=== PATIENT | female | born 1970 | race Hispanic/Latino ===

== ENCOUNTER 2016-06-29 06:56 | Emergency (ER) | payer MEDICAID ==
[2016-06-29 07:38] VITALS: BP 146/91
[2016-06-29] MEDS ORDERED: DUONEB 0.5 MG-3 MG/3 ML SOLN IH ONE (08:40)
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
--- NOTE | 2016-06-29 08:52 | XRay Report ---
ROUTINE CHEST, TWO VIEWS: HISTORY: Wheezing. Compared to 03/02/15. The trachea, heart, mediastinal contour, lung pires and bony thorax are unremarkable. IMPRESSION: No acute process identified.
== END 2016-06-29 09:37 | disposition home or self-care (01) ==
LOC: ED 06:56
DX: J06.9 Acute upper respiratory infection, unspecified (principal); J03.90 Acute tonsillitis, unspecified; E11.9 Type 2 diabetes mellitus without complications; Z86.718 Personal history of other venous thrombosis and embolism; Z86.711 Personal history of pulmonary embolism; Z90.49 Acquired absence of other specified parts of digestive tract; Z88.8 Allergy status to other drugs, medicaments and biological substances
CPT/HCPCS: 71020; 94640; 96372; 99283; J2920

== ENCOUNTER 2018-06-24 00:55 | Emergency (ER) | payer MEDICAID ==
[2018-06-24 01:48] LABS: Alanine Aminotransferase 7 units/L (7-56); Albumin 3.1 g/dL (3.9-5); BUN/Creatinine Ratio 21; Blood Urea Nitrogen 17 mg/dL (7-17); Calcium 9.1 mg/dL (8.4-10.2); Hemolysis Index 8
[2018-06-24 01:53] LABS: Basophils % (Auto) 0.4 % (0.0-1.8); Eosinophils # (Auto) 0.1 K/mm3 (0.0-0.4); Eosinophils % (Auto) 1.8 % (0.0-4.3); Hematocrit 32.6 % (30.3-42.9); Hemoglobin 10.4 gm/dl (10.1-14.3); Lymphocytes # (Auto) 1.8 K/mm3 (1.2-5.4); Lymphocytes % (Auto) 21.4 % (13.4-35.0); Mean Corpuscular HGB Conc 32 % (30-34); Mean Corpuscular Volume 79 fl (79-97); Monocytes # (Auto) 0.5 K/mm3 (0.0-0.8); Monocytes % (Auto) 6.3 % (0.0-7.3); Platelet Count 224 K/mm3 (140-440); Red Blood Count 4.11 M/mm3 (3.65-5.03); Red Cell Distribution Width 16.8 % (13.2-15.2)
--- NOTE | 2018-06-24 02:55 | Emergency Department Report ---
ED General Adult HPI - General Chief complaint: Abdominal Pain Stated complaint: L FLANK PAIN/R CALF PAIN Time Seen by Provider: 06/24/18 02:41 Source: patient Mode of arrival: Ambulatory Limitations: No Limitations - Related Data Previous Rx's Medication Instructions Recorded Last Taken Type Dabigatran [Pradaxa] 150 mg PO DAILY #60 capsule 03/02/15 07/08/15 Rx am metFORMIN [Glucophage] 850 mg PO BID #60 tablet 03/02/15 07/08/15 Rx am oxyCODONE [roxiCODONE] 5 mg PO Q6HR PRN #15 tablet 07/09/15 Unknown Rx ALBUTEROL Inhaler (OR & NICU) 2 puff IH QID PRN #1 inhalation 06/29/16 Unknown Rx [ProAir HFA Inhaler] Amoxicillin 500 mg PO BID #20 capsule 06/29/16 Unknown Rx predniSONE [Deltasone] 40 mg PO QDAY 5 Days tab 06/29/16 Unknown Rx Allergies Allergy/AdvReac Type Severity Reaction Status Date / Time levofloxacin [From Levaquin] Allergy Hives Verified 06/29/16 07:28 vancomycin Allergy Hives Verified 06/29/16 07:28 ED Review of Systems ROS: Stated complaint: L FLANK PAIN/R CALF PAIN Other details as noted in HPI ED Past Medical Hx - Past Medical History Previous Medical History?: Yes Hx Congestive Heart Failure: No Hx Diabetes: Yes Hx Deep Vein Thrombosis: Yes Hx Pulmonary Embolism: Yes Hx Asthma: No Hx COPD: No Additional medical history: DVT, FACTOR FIVE - Surgical History Past Surgical History?: Yes Hx Cholecystectomy: Yes (GALL BLADDER SURGERY) Additional Surgical History: Left ankle/leg surgery status post fracture, green filter - Social History Smoking Status: Never Smoker Substance Use Type: None - Medications Home Medications: Home Medications Medication Instructions Recorded Confirmed Last Taken Type Dabigatran [Pradaxa] 150 mg PO DAILY #60 capsule 03/02/15 07/08/15 07/08/15 Rx am metFORMIN [Glucophage] 850 mg PO BID #60 tablet 03/02/15 07/08/15 07/08/15 Rx am oxyCODONE [roxiCODONE] 5 mg PO Q6HR PRN #15 tablet 07/09/15 Unknown Rx ALBUTEROL Inhaler (OR & NICU) 2 puff IH QID PRN #1 inhalation 06/29/16 Unknown Rx [ProAir HFA Inhaler] Amoxicillin 500 mg PO BID #20 capsule 06/29/16 Unknown Rx predniSONE [Deltasone] 40 mg PO QDAY 5 Days tab 06/29/16 Unknown Rx ED Physical Exam - General Limitations: No Limitations ED Course Vital Signs 06/24/18 01:03 Temperature 98.1 F Pulse Rate 85 Respiratory 18 Rate Blood Pressure 204/98 O2 Sat by Pulse 97 Oximetry ED Medical Decision Making - Lab Data Result diagrams: 06/24/18 01:04 06/24/18 01:04 Critical care attestation.: If time is entered above; I have spent that time in minutes in the direct care of this critically ill patient, excluding procedure time. ED Disposition Condition: Stable Instructions: Abdominal Pain (ED)
--- NOTE | 2018-06-24 03:57 | Emergency Department Report ---
ED General Adult HPI - General Chief complaint: Abdominal Pain Stated complaint: L FLANK PAIN/R CALF PAIN Time Seen by Provider: 06/24/18 02:41 Source: patient Mode of arrival: Ambulatory Limitations: No Limitations - History of Present Illness Initial comments: Mrs. Turk is a 47 yo female with history of diabetes, severe obesity, factor V Leiden who presents with right calf pain for the past week. Her vascular surgeon Dr. Montoya attempted duplex study, due to severe pain in the study was unable to be completed. She has follow-up within the next 3 days on Sunday. 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 History of thrombophlebitis. History of the ED. She has been on chronic anticoagulation. Currently taking Eliquis 5 gg by mouth twice a day. She is unclear whether she has a new DVT or cellulitis causing the right calf pain. She also concern for UTI with the left flank pain left hip pain. PCP Dr. Rene. Vascular surgeon Dr. Montoya. Has IVC filter and IVC stents -: Gradual (5) Location: right, lower extremity Severity scale (0 -10): 7 Quality: aching Consistency: constant Worsens with: movement Associated Symptoms: denies: chest pain, cough, malaise - Related Data Previous Rx's Medication Instructions Recorded Last Taken Type Dabigatran [Pradaxa] 150 mg PO DAILY #60 capsule 03/02/15 07/08/15 Rx am metFORMIN [Glucophage] 850 mg PO BID #60 tablet 03/02/15 07/08/15 Rx am oxyCODONE [roxiCODONE] 5 mg PO Q6HR PRN #15 tablet 07/09/15 Unknown Rx ALBUTEROL Inhaler (OR & NICU) 2 puff IH QID PRN #1 inhalation 06/29/16 Unknown Rx [ProAir HFA Inhaler] Amoxicillin 500 mg PO BID #20 capsule 06/29/16 Unknown Rx predniSONE [Deltasone] 40 mg PO QDAY 5 Days tab 06/29/16 Unknown Rx Sulfamethoxazole/Trimethoprim 1 each PO BID 7 Days #14 tablet 06/24/18 Unknown Rx [Bactrim DS TAB] cephALEXin [Keflex] 500 mg PO Q6HR 7 Days #28 capsule 06/24/18 Unknown Rx oxyCODONE /ACETAMINOPHEN [Percocet 1 tab PO Q6HR PRN #10 tablet 06/24/18 Unknown Rx 5/325] Allergies Allergy/AdvReac Type Severity Reaction Status Date / Time levofloxacin [From Levaquin] Allergy Hives Verified 06/29/16 07:28 vancomycin Allergy Hives Verified 06/29/16 07:28 ED Review of Systems ROS: Stated complaint: L FLANK PAIN/R CALF PAIN Other details as noted in HPI Comment: All other systems reviewed and negative Constitutional: denies: fever, malaise Cardiovascular: denies: chest pain ED Past Medical Hx - Past Medical History Previous Medical History?: Yes Hx Congestive Heart Failure: No Hx Diabetes: Yes Hx Deep Vein Thrombosis: Yes Hx Pulmonary Embolism: Yes Hx Asthma: No Hx COPD: No Additional medical history: DVT, FACTOR FIVE - Surgical History Past Surgical History?: Yes Hx Cholecystectomy: Yes (GALL BLADDER SURGERY) Additional Surgical History: Left ankle/leg surgery status post fracture, green filter - Social History Smoking Status: Never Smoker Substance Use Type: None - Medications Home Medications: Home Medications Medication Instructions Recorded Confirmed Last Taken Type Dabigatran [Pradaxa] 150 mg PO DAILY #60 capsule 03/02/15 07/08/15 07/08/15 Rx am metFORMIN [Glucophage] 850 mg PO BID #60 tablet 03/02/15 07/08/15 07/08/15 Rx am oxyCODONE [roxiCODONE] 5 mg PO Q6HR PRN #15 tablet 07/09/15 Unknown Rx ALBUTEROL Inhaler (OR & NICU) 2 puff IH QID PRN #1 inhalation 06/29/16 Unknown Rx [ProAir HFA Inhaler] Amoxicillin 500 mg PO BID #20 capsule 06/29/16 Unknown Rx predniSONE [Deltasone] 40 mg PO QDAY 5 Days tab 06/29/16 Unknown Rx Sulfamethoxazole/Trimethoprim 1 each PO BID 7 Days #14 tablet 06/24/18 Unknown Rx [Bactrim DS TAB] cephALEXin [Keflex] 500 mg PO Q6HR 7 Days #28 capsule 06/24/18 Unknown Rx oxyCODONE /ACETAMINOPHEN [Percocet 1 tab PO Q6HR PRN #10 tablet 06/24/18 Unknown Rx 5/325] ED Physical Exam - General Limitations: No Limitations General appearance: alert, in no apparent distress - Head Head exam: Present: atraumatic, normocephalic - Eye Eye exam: Present: normal appearance - ENT ENT exam: Present: mucous membranes moist - Neck Neck exam: Present: normal inspection, full ROM - Respiratory Respiratory exam: Present: normal lung sounds bilaterally. Absent: respiratory distress, wheezes, rales, rhonchi - Cardiovascular Cardiovascular Exam: Present: regular rate, normal rhythm, normal heart sounds. Absent: systolic murmur, diastolic murmur, rubs, gallop - GI/Abdominal GI/Abdominal exam: Present: soft, normal bowel sounds. Absent: distended, tenderness, guarding, rebound - Extremities Exam Extremities exam: Present: other (bilateral lower extremities with small bandages dressing clean dry intact, mild erythema and edema involving calf region RLE) - Back Exam Back exam: Present: normal inspection - Neurological Exam Neurological exam: Present: alert, oriented X3 - Psychiatric Psychiatric exam: Present: normal affect, normal mood - Skin Skin exam: Present: warm, dry, intact, normal color. Absent: rash ED Course Vital Signs 06/24/18 06/24/18 01:03 03:39 Temperature 98.1 F 98.2 F Pulse Rate 85 76 Respiratory 18 19 Rate Blood Pressure 204/98 Blood Pressure 187/85 [Left] O2 Sat by Pulse 97 98 Oximetry ED Medical Decision Making - Lab Data Result diagrams: 06/24/18 01:04 06/24/18 01:04 Laboratory Results - last 24 hr 06/24/18 06/24/18 06/24/18 01:04 01:04 01:04 WBC 8.5 RBC 4.11 Hgb 10.4 Hct 32.6 MCV 79 MCH 25 L MCHC 32 RDW 16.8 H Plt Count 224 Lymph % (Auto) 21.4 Coles % (Auto) 6.3 Eos % (Auto) 1.8 Baso % (Auto) 0.4 Lymph # 1.8 Coles # 0.5 Eos # 0.1 Baso # 0.0 Seg Neutrophils % 70.1 H Seg Neutrophils # 6.0 D-Dimer 285.66 H Sodium 139 Potassium 4.1 Chloride 99.6 Carbon Dioxide 28 Anion Gap 16 BUN 17 Creatinine 0.8 Estimated GFR > 60 BUN/Creatinine Ratio 21 Glucose 194 H Calcium 9.1 Total Bilirubin 0.20 AST 11 ALT 7 Alkaline Phosphatase 102 Total Protein 7.4 Albumin 3.1 L Albumin/Globulin Ratio 0.7 HCG, Qual 05/20/19 01:04 WBC RBC Hgb Hct MCV MCH MCHC RDW Plt Count Lymph % (Auto) Coles % (Auto) Eos % (Auto) Baso % (Auto) Lymph # Coles # Eos # Baso # Seg Neutrophils % Seg Neutrophils # D-Dimer Sodium Potassium Chloride Carbon Dioxide Anion Gap BUN Creatinine Estimated GFR BUN/Creatinine Ratio Glucose Calcium Total Bilirubin AST ALT Alkaline Phosphatase Total Protein Albumin Albumin/Globulin Ratio HCG, Qual Negative - Medical Decision Making Mrs. Turk presents with right calf redness/tenderness differential diagnosis cellulitis versus DVT prescribed cephalexin bactrim and Percocet. She has follow-up with her vascular surgeon on Sunday. She has been compliant with anticoagulation Hypertensive urgency without end organ damage referred to PCP for BP check Vital Signs - 24 hr 06/24/18 06/24/18 01:03 03:39 Temperature 98.1 F 98.2 F Pulse Rate 85 76 Respiratory 18 19 Rate Blood Pressure 204/98 Blood Pressure 187/85 [Left] O2 Sat by Pulse 97 98 Oximetry Critical care attestation.: If time is entered above; I have spent that time in minutes in the direct care of this critically ill patient, excluding procedure time. ED Disposition Clinical Impression: Right leg pain, Factor V Leiden, History of DVT (deep vein thrombosis), Chronic wound of extremity, Hypertensive urgency Disposition: -01 TO HOME OR SELFCARE Is pt being admited?: No Does the pt Need Aspirin: No Condition: Stable Instructions: Chronic Wound Care (ED) Prescriptions: Sulfamethoxazole/Trimethoprim [Bactrim DS TAB] 1 each PO BID 7 Days #14 tablet cephALEXin [Keflex] 500 mg PO Q6HR 7 Days #28 capsule oxyCODONE /ACETAMINOPHEN [Percocet 5/325] 1 tab PO Q6HR PRN #10 tablet PRN Reason: Pain
[2018-06-24] MEDS ORDERED: BACTRIM DS PO ONE (03:58)
[2018-06-24] MEDS ORDERED: PERCOCET 5/325 PO ONE (03:58)
[2018-06-24] MEDS ORDERED: KEFLEX PO ONE (03:58)
[2018-06-24 04:25] VITALS: BP 186/81
== END 2018-06-24 04:26 | disposition home or self-care (01) ==
LOC: ED 00:55
DX: S81.801A Unspecified open wound, right lower leg, initial encounter (principal); D68.51 Activated protein C resistance; I16.0 Hypertensive urgency; E11.9 Type 2 diabetes mellitus without complications; Z86.718 Personal history of other venous thrombosis and embolism; Z90.49 Acquired absence of other specified parts of digestive tract; Z88.1 Allergy status to other antibiotic agents; X58.XXXA Exposure to other specified factors, initial encounter; Y93.89 Activity, other specified; Y92.89 Other specified places as the place of occurrence of the external cause; Y99.8 Other external cause status
CPT/HCPCS: 36415; 80053; 84703; 85025; 85379; 99283

== ENCOUNTER 2018-12-02 16:00 | Emergency (ER) | payer MEDICAID ==
--- NOTE | 2018-12-02 16:27 | Emergency Department Report ---
Blank Doc - Documentation Documentation: 48-year-old female that presents with bilateral leg open wounds with drainage. This initial assessment/diagnostic orders/clinical plan/treatment(s) is/are subject to change based on patient's health status, clinical progression and re- assessment by fellow clinical providers in the ED. Further treatment and workup at subsequent clinical providers discretion. Patient/guardians urged not to elope from the ED as their condition may be serious if not clinically assessed and managed. Initial orders include: 1- Patient sent to [facility] for further evaluation and treatment 2- labs
[2018-12-02 18:04] LABS: Basophils # (Auto) 0.1 K/mm3 (0.0-0.1); Basophils % (Auto) 0.8 % (0.0-1.8); Eosinophils # (Auto) 0.2 K/mm3 (0.0-0.4); Eosinophils % (Auto) 1.9 % (0.0-4.3); Hematocrit 37.2 % (30.3-42.9); Hemoglobin 11.8 gm/dl (10.1-14.3); Lymphocytes # (Auto) 1.4 K/mm3 (1.2-5.4); Lymphocytes % (Auto) 15.9 % (13.4-35.0); Mean Corpuscular HGB Conc 32 % (30-34); Mean Corpuscular Volume 83 fl (79-97); Monocytes # (Auto) 0.6 K/mm3 (0.0-0.8); Monocytes % (Auto) 7.1 % (0.0-7.3); Platelet Count 257 K/mm3 (140-440); Red Blood Count 4.51 M/mm3 (3.65-5.03); Red Cell Distribution Width 14.6 % (13.2-15.2)
[2018-12-02 18:13] LABS: BUN/Creatinine Ratio 26; Blood Urea Nitrogen 21 mg/dL (7-17); Calcium 8.8 mg/dL (8.4-10.2); Hemolysis Index 13
--- NOTE | 2018-12-02 19:42 | Emergency Department Report ---
HPI - General Chief Complaint: Laceration/Recheck/Suture Time Seen by Provider: 12/02/18 16:26 - HPI HPI: Room 18 The patient is a 48-year-old female presenting with a chief complaint of chronic leg wounds. Patient states she has a history of chronic wounds to bilateral lower extremities. The patient states the wound on her left lower extremity has been there for approximately 3-4 years. The wound on the right lower extremity has been there for approximately 2 years. Patient states she has not seen a physician about the legs for approximately 5 months. The patient states she's noticed that the wounds are getting bigger and over the past 4 days has been a yellowish discharge that is malodorous. Patient denies history of fever. Patient states she has not been on antibiotics for her leg since January 2018 Location: [See above] Duration: [See above] Quality: [See above] Severity: [See above] Timing: [See above] Context: [See above] Modifying factors: [See above] Associated signs and symptoms: [see above] ED Past Medical Hx - Past Medical History Hx Diabetes: Yes Hx Deep Vein Thrombosis: Yes Hx Pulmonary Embolism: Yes Additional medical history: DVT, FACTOR FIVE - Surgical History Hx Cholecystectomy: Yes (GALL BLADDER SURGERY) Additional Surgical History: Left ankle/leg surgery status post fracture, green filter - Family History Family history: no significant - Social History Smoking Status: Never Smoker Substance Use Type: None - Medications Home Medications: Home Medications Medication Instructions Recorded Confirmed Last Taken Type Dabigatran [Pradaxa] 150 mg PO DAILY #60 capsule 03/02/15 07/08/15 07/08/15 Rx am metFORMIN [Glucophage] 850 mg PO BID #60 tablet 03/02/15 07/08/15 07/08/15 Rx am oxyCODONE [roxiCODONE] 5 mg PO Q6HR PRN #15 tablet 07/09/15 Unknown Rx ALBUTEROL Inhaler (OR & NICU) 2 puff IH QID PRN #1 inhalation 06/29/16 Unknown Rx [ProAir HFA Inhaler] Amoxicillin 500 mg PO BID #20 capsule 06/29/16 Unknown Rx predniSONE [Deltasone] 40 mg PO QDAY 5 Days tab 06/29/16 Unknown Rx Sulfamethoxazole/Trimethoprim 1 each PO BID 7 Days #14 tablet 06/24/18 Unknown Rx [Bactrim DS TAB] cephALEXin [Keflex] 500 mg PO Q6HR 7 Days #28 capsule 06/24/18 Unknown Rx oxyCODONE /ACETAMINOPHEN [Percocet 1 tab PO Q6HR PRN #10 tablet 06/24/18 Unknown Rx 5/325] HYDROcodone/APAP 5-325 [[place] 1 - 2 each PO Q6HR PRN #14 tablet 12/02/18 Unknown Rx 5/325] Ibuprofen [Motrin 800 MG tab] 800 mg PO Q8HR PRN #20 tablet 12/02/18 Unknown Rx Sulfamethoxazole/Trimethoprim 1 each PO BID #20 tablet 12/02/18 Unknown Rx [Bactrim DS TAB] ED Review of Systems ROS: Stated complaint: LFT ANKLE WOUND/LFT CALF PAIN Other details as noted in HPI Constitutional: chills. denies: fever Eyes: denies: eye pain ENT: denies: throat pain Respiratory: no symptoms reported Cardiovascular: denies: chest pain Endocrine: no symptoms reported Gastrointestinal: denies: abdominal pain Genitourinary: denies: dysuria Skin: lesions, change in color Physical Exam - Physical Exam Vital Signs: Vital Signs 12/02/18 12/02/18 16:26 19:10 Temperature 98.0 F 98.3 F Pulse Rate 86 86 Respiratory 16 16 Rate Blood Pressure 217/115 Blood Pressure 221/115 [Left] O2 Sat by Pulse 98 97 Oximetry Physical Exam: GENERAL: The patient is well-developed well-nourished female lying on stretcher not appearing to be in acute distress. [] HEENT: Normocephalic. Atraumatic. Extraocular motions are intact. Patient has moist mucous membranes. NECK: Supple. Trachea midline CHEST/LUNGS: There is no respiratory distress noted. HEART/CARDIOVASCULAR: Regular. There is no tachycardia. SKIN: There is a large ulceration/to the back of the right calf with grayish yellow discharge present is slightly malodorous. There is a large ulceration to the back of the left lower extremity with a lesser amount of drainage NEURO: The patient is awake, alert, and oriented. The patient is cooperative. The patient has normal speech MUSCULOSKELETAL: There is no evidence of acute injury. ED Course Vital Signs 12/02/18 12/02/18 16:26 19:10 Temperature 98.0 F 98.3 F Pulse Rate 86 86 Respiratory 16 16 Rate Blood Pressure 217/115 Blood Pressure 221/115 [Left] O2 Sat by Pulse 98 97 Oximetry ED Medical Decision Making - Lab Data Result diagrams: 12/02/18 16:52 12/02/18 16:52 Laboratory Tests 12/02/18 12/02/18 12/02/18 16:52 16:52 16:52 WBC 8.6 RBC 4.51 Hgb 11.8 Hct 37.2 MCV 83 MCH 26 L MCHC 32 RDW 14.6 Plt Count 257 Lymph % (Auto) 15.9 [place] % (Auto) 7.1 Eos % (Auto) 1.9 Baso % (Auto) 0.8 Lymph # 1.4 [place] # 0.6 Eos # 0.2 Baso # 0.1 Seg Neutrophils % 74.3 H Seg Neutrophils # 6.4 Sodium 135 L Potassium 4.6 Chloride 101.2 Carbon Dioxide 21 L Anion Gap 17 BUN 21 H Creatinine 0.8 Estimated GFR > 60 BUN/Creatinine Ratio 26 Glucose 328 H Calcium 8.8 HCG, Qual Negative - Differential Diagnosis current leg wounds, infection Critical care attestation.: If time is entered above; I have spent that time in minutes in the direct care of this critically ill patient, excluding procedure time. ED Disposition Clinical Impression: Leg wound, right, Leg wound, left, Wound drainage Disposition: TO HOME OR SELFCARE Is pt being admited?: No Does the pt Need Aspirin: No Condition: Stable Instructions: Chronic Wound Care (ED) Additional Instructions: Return to the emergency department should you develop worsening symptoms, inability to tolerate food or liquids, high fever or any other concerns Prescriptions: Sulfamethoxazole/Trimethoprim [Bactrim DS TAB] 1 each PO BID #20 tablet Ibuprofen [Motrin 800 MG tab] 800 mg PO Q8HR PRN #20 tablet PRN Reason: Pain, Moderate (4-6) HYDROcodone/APAP 5-325 [[place] 5/325] 1 - 2 each PO Q6HR PRN #14 tablet PRN Reason: Pain [facility]errals[facility]] - 3-5 Days Time of Disposition: 19:46
[2018-12-02] MEDS ORDERED: HYDROcodone/ACETAMINOPHEN 5-325 MG TAB PO ONE (20:21)
[2018-12-02 22:06] VITALS: BP 148/82
== END 2018-12-02 20:50 | disposition home or self-care (01) ==
LOC: ED 16:00
DX: S81.801A Unspecified open wound, right lower leg, initial encounter (principal); S81.802A Unspecified open wound, left lower leg, initial encounter; Z88.1 Allergy status to other antibiotic agents; E11.9 Type 2 diabetes mellitus without complications; Z86.718 Personal history of other venous thrombosis and embolism; Z86.711 Personal history of pulmonary embolism; Z79.84 Long term (current) use of oral hypoglycemic drugs; Z79.899 Other long term (current) drug therapy; X58.XXXA Exposure to other specified factors, initial encounter; Y93.89 Activity, other specified; Y92.89 Other specified places as the place of occurrence of the external cause; Y99.8 Other external cause status
CPT/HCPCS: 36415; 80048; 84703; 85025; 87116; 99283

== ENCOUNTER 2019-05-22 23:09 | Emergency (ER) | payer SELFPAY ==
[2019-05-22 23:30] VITALS: BP 212/109
[2019-05-23] MEDS ORDERED: SULFAMETHOXAZOLE/TRIMETHOPRIM 800/160MG DS TAB PO ONE (00:03)
[2019-05-23] MEDS ORDERED: ACETAMINOPHEN W/CODEINE 300-30 MG TAB PO ONE (00:03)
--- NOTE | 2019-05-23 00:09 | Emergency Department Report ---
ED General Adult HPI - General Chief complaint: Extremity Injury, Lower Stated complaint: BILATERAL LEG PAIN AND DISCHARGE Time Seen by Provider: 05/22/19 23:56 Source: patient Mode of arrival: Ambulatory Limitations: No Limitations - History of Present Illness Initial comments: MS. Turk is s 48 y/o w/f with hx of obesity, DMII, and cnronic leg wounds bilat. patient presents tonight as she is out of Bactrim and requesting referral to a different primary care doctor. She denies fevers or chills there is no nausea vomiting there are no new wounds. Patient is well versed on wound care including wet-to-dry dressings which she does herself at home. She has secondary request for refill for metformin and Lantus pen will provide referral to primary care refill Bactrim patient will follow-up with primary care tomorrow. Noted elevated blood pressure tonight repeat BP is 154/87 heart rate 74 there is no fever. Patient denies headache, dizziness, lightheadedness, chest pain, shortness of breath, diaphoresis or back pain. Onset/Timin -: year(s) Location: lower extremity (bilat ) Radiation: non-radiation Severity scale (0 -10): 3 Quality: aching Consistency: intermittent Improves with: none Worsens with: none Associated Symptoms: denies: chest pain, fever/chills, malaise, nausea/vomiting, shortness of breath - Related Data Previous Rx's Medication Instructions Recorded Last Taken Type Dabigatran [Pradaxa] 150 mg PO DAILY #60 capsule 03/02/15 07/08/15 Rx am oxyCODONE [roxiCODONE] 5 mg PO Q6HR PRN #15 tablet 07/09/15 Unknown Rx Albuterol INH(or & Nicu Only) 2 puff IH QID PRN #1 inhalation 06/29/16 Unknown Rx [ProAir HFA Inhaler] Amoxicillin 500 mg PO BID #20 capsule 06/29/16 Unknown Rx predniSONE [Deltasone] 40 mg PO QDAY 5 Days tab 06/29/16 Unknown Rx Sulfamethoxazole/Trimethoprim 1 each PO BID 7 Days #14 tablet 06/24/18 Unknown Rx [Bactrim DS TAB] cephALEXin [Keflex] 500 mg PO Q6HR 7 Days #28 capsule 06/24/18 Unknown Rx oxyCODONE /ACETAMINOPHEN [Percocet 1 tab PO Q6HR PRN #10 tablet 06/24/18 Unknown Rx 5/325] HYDROcodone/APAP 5-325 [[place] 1 - 2 each PO Q6HR PRN #14 tablet 12/02/18 Unknown Rx 5/325] Ibuprofen [Motrin 800 MG tab] 800 mg PO Q8HR PRN #20 tablet 12/02/18 Unknown Rx Acetaminophen [Acetaminophen TAB] 1,000 mg PO Q6HR PRN #30 tablet 05/23/19 Unknown Rx Insulin Glargine,Hum.rec.anlog 10 unit SQ DAILY #1 insuln.pen 05/23/19 Unknown Rx [Lantus Solostar] Sulfamethoxazole/Trimethoprim 1 each PO BID 14 Days #28 tablet 05/23/19 Unknown Rx [Bactrim DS TAB] metFORMIN [Glucophage] 850 mg PO BID #60 tablet 05/23/19 Unknown Rx Allergies Allergy/AdvReac Type Severity Reaction Status Date / Time levofloxacin [From Levaquin] Allergy Hives Verified 06/29/16 07:28 vancomycin Allergy Hives Verified 06/29/16 07:28 ED Review of Systems ROS: Stated complaint: BILATERAL LEG PAIN AND DISCHARGE Other details as noted in HPI Constitutional: denies: chills, fever Eyes: denies: eye pain, eye discharge, vision change ENT: denies: ear pain, throat pain Respiratory: denies: cough, shortness of breath, wheezing Cardiovascular: denies: chest pain, palpitations Endocrine: no symptoms reported Gastrointestinal: denies: abdominal pain, nausea, vomiting, diarrhea Genitourinary: denies: urgency, dysuria, discharge Musculoskeletal: denies: back pain, joint swelling, arthralgia, myalgia Skin: other (bilat LE Stasis Ulcer ). denies: rash, lesions Neurological: denies: headache, weakness, paresthesias Psychiatric: denies: anxiety, depression Hematological/Lymphatic: denies: easy bleeding, easy bruising ED Past Medical Hx - Past Medical History Hx Congestive Heart Failure: No Hx Diabetes: Yes Hx Deep Vein Thrombosis: Yes Hx Pulmonary Embolism: Yes Hx Asthma: No Hx COPD: No Additional medical history: DVT, FACTOR FIVE - Surgical History Past Surgical History?: Yes Hx Cholecystectomy: Yes (GALL BLADDER SURGERY) Additional Surgical History: Left ankle/leg surgery status post fracture, green filter - Social History Smoking Status: Never Smoker Substance Use Type: None - Medications Home Medications: Home Medications Medication Instructions Recorded Confirmed Last Taken Type Dabigatran [Pradaxa] 150 mg PO DAILY #60 capsule 03/02/15 07/08/15 07/08/15 Rx am oxyCODONE [roxiCODONE] 5 mg PO Q6HR PRN #15 tablet 07/09/15 Unknown Rx Albuterol INH(or & Nicu Only) 2 puff IH QID PRN #1 inhalation 06/29/16 Unknown Rx [ProAir HFA Inhaler] Amoxicillin 500 mg PO BID #20 capsule 06/29/16 Unknown Rx predniSONE [Deltasone] 40 mg PO QDAY 5 Days tab 06/29/16 Unknown Rx Sulfamethoxazole/Trimethoprim 1 each PO BID 7 Days #14 tablet 06/24/18 Unknown Rx [Bactrim DS TAB] cephALEXin [Keflex] 500 mg PO Q6HR 7 Days #28 capsule 06/24/18 Unknown Rx oxyCODONE /ACETAMINOPHEN [Percocet 1 tab PO Q6HR PRN #10 tablet 06/24/18 Unknown Rx 5/325] HYDROcodone/APAP 5-325 [[place] 1 - 2 each PO Q6HR PRN #14 tablet 12/02/18 Unknown Rx 5/325] Ibuprofen [Motrin 800 MG tab] 800 mg PO Q8HR PRN #20 tablet 12/02/18 Unknown Rx Acetaminophen [Acetaminophen TAB] 1,000 mg PO Q6HR PRN #30 tablet 05/23/19 Unknown Rx Insulin Glargine,Hum.rec.anlog 10 unit SQ DAILY #1 insuln.pen 05/23/19 Unknown Rx [Lantus Solostar] Sulfamethoxazole/Trimethoprim 1 each PO BID 14 Days #28 tablet 05/23/19 Unknown Rx [Bactrim DS TAB] metFORMIN [Glucophage] 850 mg PO BID #60 tablet 05/23/19 Unknown Rx ED Physical Exam - General Limitations: No Limitations General appearance: alert, in no apparent distress - Head Head exam: Present: atraumatic - Eye Eye exam: Present: normal appearance, PERRL, EOMI Pupils: Present: normal accommodation - ENT ENT exam: Present: normal exam, mucous membranes moist - Neck Neck exam: Present: normal inspection, full ROM. Absent: tenderness - Respiratory Respiratory exam: Present: normal lung sounds bilaterally. Absent: respiratory distress, wheezes, stridor, chest wall tenderness - Cardiovascular Cardiovascular Exam: Present: regular rate, normal rhythm, normal heart sounds. Absent: systolic murmur, diastolic murmur, rubs, gallop - GI/Abdominal GI/Abdominal exam: Present: soft. Absent: distended, tenderness, bruit, hernia - Rectal Rectal exam: Present: deferred - Extremities Exam Extremities exam: Present: full ROM, tenderness, normal capillary refill, pedal edema (bilat le dependent edema ), other (bilat le stasis ulcers no multiple dressing d/i no drainage noted at this time. ) ED Course Vital Signs 05/22/19 23:27 Temperature 98.2 F Pulse Rate 85 Respiratory 20 Rate Blood Pressure 212/109 O2 Sat by Pulse 97 Oximetry ED Medical Decision Making - Medical Decision Making chronci stasis Ulcers, Medication refill, htn episode without symptoms. plan: refill metformin, lantis, bactrim, tylenol for pain, follow up with [facility] in 2-3 days. continue dressing changes bilat as previously ordered. Critical care attestation.: If time is entered above; I have spent that time in minutes in the direct care of this critically ill patient, excluding procedure time. ED Disposition Clinical Impression: Chronic cutaneous venous stasis ulcer Disposition: TO HOME OR SELFCARE Is pt being admited?: No Does the pt Need Aspirin: No Condition: Stable Instructions: Chronic Wound Care (ED) Prescriptions: Acetaminophen [Acetaminophen TAB] 1,000 mg PO Q6HR PRN #30 tablet PRN Reason: pain Sulfamethoxazole/Trimethoprim [Bactrim DS TAB] 1 each PO BID 14 Days #28 tablet metFORMIN [Glucophage] 850 mg PO BID #60 tablet Insulin Glargine,Hum.rec.anlog [Lantus Solostar] 10 unit SQ DAILY #1 insuln.pen Referrals: [facility] [Provider Group] - 3-5 Days Forms: Work/School Release Form(ED) Time of Disposition: 00:10
== END 2019-05-23 00:20 | disposition home or self-care (01) ==
LOC: ED 23:09
DX: L97.919 Non-pressure chronic ulcer of unspecified part of right lower leg with unspecified severity (principal); L97.929 Non-pressure chronic ulcer of unspecified part of left lower leg with unspecified severity; E11.9 Type 2 diabetes mellitus without complications; Z98.890 Other specified postprocedural states; Z79.899 Other long term (current) drug therapy; Z88.8 Allergy status to other drugs, medicaments and biological substances; Z90.49 Acquired absence of other specified parts of digestive tract
CPT/HCPCS: 99282

== ENCOUNTER 2019-08-03 06:52 | Emergency (ER) | payer SELFPAY ==
[2019-08-03 10:33] LABS: Basophils % (Auto) 0.3 % (0.0-1.8); Eosinophils % (Auto) 0.6 % (0.0-4.3); Hematocrit 28.2 % (30.3-42.9); Hemoglobin 8.8 gm/dl (10.1-14.3); Lymphocytes # (Auto) 2.9 K/mm3 (1.2-5.4); Lymphocytes % (Auto) 37.6 % (13.4-35.0); Mean Corpuscular HGB Conc 31 % (30-34); Mean Corpuscular Volume 86 fl (79-97); Monocytes # (Auto) 0.7 K/mm3 (0.0-0.8); Monocytes % (Auto) 8.5 % (0.0-7.3); Platelet Count 137 K/mm3 (140-440); Red Blood Count 3.29 M/mm3 (3.65-5.03)
[2019-08-03 10:57] LABS: Albumin 2.8 g/dL (3.9-5); Calcium 8.3 mg/dL (8.4-10.2); INR 1.03 (0.87-1.13)
[2019-08-03] MEDS ORDERED: HYDROcodone/ACETAMINOPHEN 10-325MG TAB PO ONE (11:34)
[2019-08-03] MEDS ORDERED: ONDANSETRON 4 MG/2 ML INJ IV ONE (11:34)
--- NOTE | 2019-08-03 11:40 | Emergency Department Report ---
ED General Adult HPI - General Chief complaint: Wound/Laceration Stated complaint: OPEN WOUNDS ON LEGS Time Seen by Provider: 08/03/19 09:21 Source: patient Mode of arrival: Ambulatory Limitations: No Limitations - History of Present Illness Initial comments: The patient presents to the emergency department with a chief complaint of sores to her legs bilaterally. Patient states she has a history of having sores on her legs and is concerned because of the drainage and odor. Patient denies any chest pain, shortness breath, or headache. -: Gradual Location: lower extremity Radiation: non-radiation Severity scale (0 -10): 10 Quality: constant Consistency: constant Improves with: none Worsens with: none Associated Symptoms: denies other symptoms Treatments Prior to Arrival: none - Related Data Previous Rx's Medication Instructions Recorded Last Taken Type Dabigatran [Pradaxa] 150 mg PO DAILY #60 capsule 03/02/15 07/08/15 Rx am oxyCODONE [roxiCODONE] 5 mg PO Q6HR PRN #15 tablet 07/09/15 Unknown Rx Albuterol INH(or & Nicu Only) 2 puff IH QID PRN #1 inhalation 06/29/16 Unknown Rx [ProAir HFA Inhaler] Amoxicillin 500 mg PO BID #20 capsule 06/29/16 Unknown Rx predniSONE [Deltasone] 40 mg PO QDAY 5 Days tab 06/29/16 Unknown Rx Sulfamethoxazole/Trimethoprim 1 each PO BID 7 Days #14 tablet 06/24/18 Unknown Rx [Bactrim DS TAB] cephALEXin [Keflex] 500 mg PO Q6HR 7 Days #28 capsule 06/24/18 Unknown Rx oxyCODONE /ACETAMINOPHEN [Percocet 1 tab PO Q6HR PRN #10 tablet 06/24/18 Unknown Rx 5/325] Ibuprofen [Motrin 800 MG tab] 800 mg PO Q8HR PRN #20 tablet 12/02/18 Unknown Rx Acetaminophen [Acetaminophen TAB] 1,000 mg PO Q6HR PRN #30 tablet 05/23/19 Unknown Rx Insulin Glargine,Hum.rec.anlog 10 unit SQ DAILY #1 insuln.pen 05/23/19 Unknown Rx [Lantus Solostar] Sulfamethoxazole/Trimethoprim 1 each PO BID 14 Days #28 tablet 05/23/19 Unknown Rx [Bactrim DS TAB] metFORMIN [Glucophage] 850 mg PO BID #60 tablet 05/23/19 Unknown Rx HYDROcodone/APAP 5-325 [[place] 1 - 2 each PO Q6HR PRN #14 tablet 08/03/19 Unknown Rx 5/325] Sulfamethoxazole/Trimethoprim 1 each PO BID #20 tablet 08/03/19 Unknown Rx [Bactrim DS TAB] Allergies Allergy/AdvReac Type Severity Reaction Status Date / Time levofloxacin [From Levaquin] Allergy Hives Verified 06/29/16 07:28 vancomycin Allergy Hives Verified 06/29/16 07:28 ED Review of Systems ROS: Stated complaint: OPEN WOUNDS ON LEGS Other details as noted in HPI Comment: All other systems reviewed and negative Constitutional: denies: chills, fever Eyes: denies: eye pain, eye discharge, vision change ENT: denies: ear pain, throat pain Respiratory: denies: cough, shortness of breath, wheezing Cardiovascular: denies: chest pain, palpitations Endocrine: no symptoms reported Gastrointestinal: denies: abdominal pain, nausea, diarrhea Genitourinary: denies: urgency, dysuria, discharge Musculoskeletal: denies: back pain, joint swelling, arthralgia Skin: denies: rash, lesions Neurological: denies: headache, weakness, paresthesias Psychiatric: denies: anxiety, depression Hematological/Lymphatic: denies: easy bleeding, easy bruising ED Past Medical Hx - Past Medical History Previous Medical History?: Yes Hx Hypertension: Yes Hx Congestive Heart Failure: No Hx Diabetes: Yes Hx Deep Vein Thrombosis: Yes Hx Pulmonary Embolism: Yes Hx Asthma: No Hx COPD: No Additional medical history: DVT, FACTOR FIVE. MORBID OBESITY - Surgical History Past Surgical History?: Yes Hx Cholecystectomy: Yes (GALL BLADDER SURGERY) Additional Surgical History: Left ankle/leg surgery status post fracture, green filter - Social History Smoking Status: Never Smoker Substance Use Type: None - Medications Home Medications: Home Medications Medication Instructions Recorded Confirmed Last Taken Type Dabigatran [Pradaxa] 150 mg PO DAILY #60 capsule 03/02/15 07/08/15 07/08/15 Rx am oxyCODONE [roxiCODONE] 5 mg PO Q6HR PRN #15 tablet 07/09/15 Unknown Rx Albuterol INH(or & Nicu Only) 2 puff IH QID PRN #1 inhalation 06/29/16 Unknown Rx [ProAir HFA Inhaler] Amoxicillin 500 mg PO BID #20 capsule 06/29/16 Unknown Rx predniSONE [Deltasone] 40 mg PO QDAY 5 Days tab 06/29/16 Unknown Rx Sulfamethoxazole/Trimethoprim 1 each PO BID 7 Days #14 tablet 06/24/18 Unknown Rx [Bactrim DS TAB] cephALEXin [Keflex] 500 mg PO Q6HR 7 Days #28 capsule 06/24/18 Unknown Rx oxyCODONE /ACETAMINOPHEN [Percocet 1 tab PO Q6HR PRN #10 tablet 06/24/18 Unknown Rx 5/325] Ibuprofen [Motrin 800 MG tab] 800 mg PO Q8HR PRN #20 tablet 12/02/18 Unknown Rx Acetaminophen [Acetaminophen TAB] 1,000 mg PO Q6HR PRN #30 tablet 05/23/19 Unknown Rx Insulin Glargine,Hum.rec.anlog 10 unit SQ DAILY #1 insuln.pen 05/23/19 Unknown Rx [Lantus Solostar] Sulfamethoxazole/Trimethoprim 1 each PO BID 14 Days #28 tablet 05/23/19 Unknown Rx [Bactrim DS TAB] metFORMIN [Glucophage] 850 mg PO BID #60 tablet 05/23/19 Unknown Rx HYDROcodone/APAP 5-325 [[place] 1 - 2 each PO Q6HR PRN #14 tablet 08/03/19 Unknown Rx 5/325] Sulfamethoxazole/Trimethoprim 1 each PO BID #20 tablet 08/03/19 Unknown Rx [Bactrim DS TAB] ED Physical Exam - General Limitations: No Limitations General appearance: alert, in no apparent distress - Head Head exam: Present: atraumatic, normocephalic - Eye Eye exam: Present: normal appearance, PERRL, EOMI - ENT ENT exam: Present: mucous membranes moist - Neck Neck exam: Present: normal inspection - Respiratory Respiratory exam: Present: normal lung sounds bilaterally. Absent: respiratory distress - Cardiovascular Cardiovascular Exam: Present: regular rate, normal rhythm. Absent: systolic murmur, diastolic murmur, rubs, gallop - GI/Abdominal GI/Abdominal exam: Present: soft, normal bowel sounds. Absent: distended, tenderness - Extremities Exam Extremities exam: Present: normal inspection - Back Exam Back exam: Present: normal inspection - Neurological Exam Neurological exam: Present: alert, oriented X3, CN II-XII intact. Absent: motor sensory deficit - Psychiatric Psychiatric exam: Present: normal affect, normal mood - Skin Skin exam: Present: warm, dry, intact, normal color, other (Patient has stage III venous stasis ulcers of the right lateral aspect of her lower portion of her leg that has a malodorous purulent drainage) ED Course Vital Signs 08/03/19 07:04 Temperature 98.3 F Pulse Rate 96 H Respiratory 24 Rate Blood Pressure 232/113 [Left] O2 Sat by Pulse 95 Oximetry ED Medical Decision Making - Lab Data Result diagrams: 08/03/19 10:07 08/03/19 10:07 Lab Results 08/03/19 08/03/19 08/03/19 Range/Units 10:07 10:07 10:07 WBC 7.7 (4.5-11.0) K/mm3 RBC 3.29 L (3.65-5.03) M/mm3 Hgb 8.8 L (10.1-14.3) gm/dl Hct 28.2 L (30.3-42.9) % MCV 86 (79-97) fl MCH 27 L (28-32) pg MCHC 31 (30-34) % RDW 17.0 H (13.2-15.2) % Plt Count 137 L (140-440) K/mm3 Lymph % (Auto) 37.6 H (13.4-35.0) % [place] % (Auto) 8.5 H (0.0-7.3) % Eos % (Auto) 0.6 (0.0-4.3) % Baso % (Auto) 0.3 (0.0-1.8) % Lymph # 2.9 (1.2-5.4) K/mm3 [place] # 0.7 (0.0-0.8) K/mm3 Eos # 0.0 (0.0-0.4) K/mm3 Baso # 0.0 (0.0-0.1) K/mm3 Seg Neutrophils % 53.0 (40.0-70.0) % Seg Neutrophils # 4.1 (1.8-7.7) K/mm3 PT 13.3 (12.2-14.9) Sec. INR 1.03 (0.87-1.13) APTT 20.0 L (24.2-36.6) Sec. Sodium 134 L (137-145) mmol/L Potassium 4.8 (3.6-5.0) mmol/L Chloride 99.8 (98-107) mmol/L Carbon Dioxide 22 (22-30) mmol/L Anion Gap 17 mmol/L BUN 29 H (7-17) mg/dL Creatinine 1.6 H (0.7-1.2) mg/dL Estimated GFR 35 ml/min BUN/Creatinine Ratio 18 % Glucose 308 H (65-100) mg/dL Lactic Acid (0.7-2.0) mmol/L Calcium 8.3 L (8.4-10.2) mg/dL Total Bilirubin 0.20 (0.1-1.2) mg/dL AST 10 (5-40) units/L ALT 8 (7-56) units/L Alkaline Phosphatase 101 (35-129) units/L Total Protein 6.0 L (6.3-8.2) g/dL Albumin 2.8 L (3.9-5) g/dL Albumin/Globulin Ratio 0.9 % // Range/Units 10:07 WBC (4.5-11.0) K/mm3 RBC (3.65-5.03) M/mm3 Hgb (10.1-14.3) gm/dl Hct (30.3-42.9) % MCV (79-97) fl MCH (28-32) pg MCHC (30-34) % RDW (13.2-15.2) % Plt Count (140-440) K/mm3 Lymph % (Auto) (13.4-35.0) % [place] % (Auto) (0.0-7.3) % Eos % (Auto) (0.0-4.3) % Baso % (Auto) (0.0-1.8) % Lymph # (1.2-5.4) K/mm3 [place] # (0.0-0.8) K/mm3 Eos # (0.0-0.4) K/mm3 Baso # (0.0-0.1) K/mm3 Seg Neutrophils % (40.0-70.0) % Seg Neutrophils # (1.8-7.7) K/mm3 PT (12.2-14.9) Sec. INR (0.87-1.13) APTT (24.2-36.6) Sec. Sodium (137-145) mmol/L Potassium (3.6-5.0) mmol/L Chloride (98-107) mmol/L Carbon Dioxide (22-30) mmol/L Anion Gap mmol/L BUN (7-17) mg/dL Creatinine (0.7-1.2) mg/dL Estimated GFR ml/min BUN/Creatinine Ratio % Glucose (65-100) mg/dL Lactic Acid 1.00 (0.7-2.0) mmol/L Calcium (8.4-10.2) mg/dL Total Bilirubin (0.1-1.2) mg/dL AST (5-40) units/L ALT (7-56) units/L Alkaline Phosphatase (35-129) units/L Total Protein (6.3-8.2) g/dL Albumin (3.9-5) g/dL Albumin/Globulin Ratio % Critical care attestation.: If time is entered above; I have spent that time in minutes in the direct care of this critically ill patient, excluding procedure time. ED Disposition Clinical Impression: Venous stasis ulcer Disposition: OP ADMIT IP TO THIS HOSP Is pt being admited?: Yes Does the pt Need Aspirin: No Condition: Stable Prescriptions: Sulfamethoxazole/Trimethoprim [Bactrim DS TAB] 1 each PO BID #20 tablet HYDROcodone/APAP 5-325 [[place] 5/325] 1 - 2 each PO Q6HR PRN #14 tablet PRN Reason: Pain Referrals: PRIMARY CARE, [Primary Care Provider] - 3-5 Days Time of Disposition: 11:25
--- NOTE | 2019-08-03 12:12 | History and Physical Report ---
Medications and Allergies Allergies Allergy/AdvReac Type Severity Reaction Status Date / Time levofloxacin [From Levaquin] Allergy Hives Verified 06/29/16 07:28 vancomycin Allergy Hives Verified 06/29/16 07:28 Home Medications Medication Instructions Recorded Confirmed Last Taken Type Dabigatran [Pradaxa] 150 mg PO DAILY #60 capsule 03/02/15 07/08/15 07/08/15 Rx am oxyCODONE [roxiCODONE] 5 mg PO Q6HR PRN #15 tablet 07/09/15 Unknown Rx Albuterol INH(or & Nicu Only) 2 puff IH QID PRN #1 inhalation 06/29/16 Unknown Rx [ProAir HFA Inhaler] Amoxicillin 500 mg PO BID #20 capsule 06/29/16 Unknown Rx predniSONE [Deltasone] 40 mg PO QDAY 5 Days tab 06/29/16 Unknown Rx Sulfamethoxazole/Trimethoprim 1 each PO BID 7 Days #14 tablet 06/24/18 Unknown Rx [Bactrim DS TAB] cephALEXin [Keflex] 500 mg PO Q6HR 7 Days #28 capsule 06/24/18 Unknown Rx oxyCODONE /ACETAMINOPHEN [Percocet 1 tab PO Q6HR PRN #10 tablet 06/24/18 Unknown Rx 5/325] HYDROcodone/APAP 5-325 [[place] 1 - 2 each PO Q6HR PRN #14 tablet 12/02/18 Unknown Rx 5/325] Ibuprofen [Motrin 800 MG tab] 800 mg PO Q8HR PRN #20 tablet 12/02/18 Unknown Rx Acetaminophen [Acetaminophen TAB] 1,000 mg PO Q6HR PRN #30 tablet 05/23/19 Unknown Rx Insulin Glargine,Hum.rec.anlog 10 unit SQ DAILY #1 insuln.pen 05/23/19 Unknown Rx [Lantus Solostar] Sulfamethoxazole/Trimethoprim 1 each PO BID 14 Days #28 tablet 05/23/19 Unknown Rx [Bactrim DS TAB] metFORMIN [Glucophage] 850 mg PO BID #60 tablet 05/23/19 Unknown Rx Exam - Constitutional Vitals: Temp Pulse Resp BP Pulse Ox 98.3 F 96 H 24 232/113 95 08/03/19 07:04 08/03/19 07:04 08/03/19 07:04 08/03/19 07:04 08/03/19 07:04 Results - Labs CBC & Chem 7: 08/03/19 10:07 08/03/19 10:07 Labs: Abnormal lab results 08/03/19 08/03/19 08/03/19 Range/Units 10:07 10:07 10:07 RBC 3.29 L (3.65-5.03) M/mm3 Hgb 8.8 L (10.1-14.3) gm/dl Hct 28.2 L (30.3-42.9) % MCH 27 L (28-32) pg RDW 17.0 H (13.2-15.2) % Plt Count 137 L (140-440) K/mm3 Lymph % (Auto) 37.6 H (13.4-35.0) % [place] % (Auto) 8.5 H (0.0-7.3) % APTT 20.0 L (24.2-36.6) Sec. Sodium 134 L (137-145) mmol/L BUN 29 H (7-17) mg/dL Creatinine 1.6 H (0.7-1.2) mg/dL Glucose 308 H (65-100) mg/dL Calcium 8.3 L (8.4-10.2) mg/dL Total Protein 6.0 L (6.3-8.2) g/dL Albumin 2.8 L (3.9-5) g/dL
--- NOTE | 2019-08-03 12:41 | Event Note ---
Date: 08/03/19 48 YO Female presents to ED for evaluation of chronic bilateral lower extremity ulcers. Patient seen and evaluated in the emergency department. Lab and imaging studies reviewed. Patient found to have chronic bilateral lower extremity pressure sores. Patient treated with wound care in the emergency department. Case management consulted for assistance with outpatient wound care. Patient medically optimized and subsequently discharged home with wound care. Patient counseled regarding further care and management and attendance to wound care clinic. No signs of wound infection at the time of my exam. Patient treated with empiric oral antibiotic therapy as an outpatient. ED Physical Exam - General Limitations: No Limitations General appearance: alert, in no apparent distress - Head Head exam: Present: atraumatic, normocephalic - Eye Eye exam: Present: normal appearance, PERRL, EOMI - ENT ENT exam: Present: mucous membranes moist - Neck Neck exam: Present: normal inspection - Respiratory Respiratory exam: Present: normal lung sounds bilaterally. Absent: respiratory distress - Cardiovascular Cardiovascular Exam: Present: regular rate, normal rhythm. Absent: systolic murmur, diastolic murmur, rubs, gallop - GI/Abdominal GI/Abdominal exam: Present: soft, normal bowel sounds. Absent: distended, tenderness - Extremities Exam Extremities exam: Present: normal inspection - Back Exam Back exam: Present: normal inspection - Neurological Exam Neurological exam: Present: alert, oriented X3, CN II-XII intact. Absent: motor sensory deficit - Psychiatric Psychiatric exam: Present: normal affect, normal mood - Skin Skin exam: Present: warm, dry, intact, normal color, other (Patient has stage III venous stasis ulcers of the right lateral aspect of her lower portion of her leg. Patient treated with wound care. Dressings clean dry and intact.)
[2019-08-03] MEDS ORDERED: HYDROmorphone 1 MG/1 ML INJ IV ONE (12:55)
[2019-08-03 14:25] VITALS: BP 160/86
== END 2019-08-03 14:20 | disposition admitted as inpatient to this hospital (09) ==
LOC: ED 06:52
DX: I83.009 Varicose veins of unspecified lower extremity with ulcer of unspecified site (principal); I10 Essential (primary) hypertension; E11.9 Type 2 diabetes mellitus without complications; E66.01 Morbid (severe) obesity due to excess calories; Z68.45 Body mass index [BMI] 70 or greater, adult; Z90.49 Acquired absence of other specified parts of digestive tract; Z98.890 Other specified postprocedural states; Z88.8 Allergy status to other drugs, medicaments and biological substances; Z79.899 Other long term (current) drug therapy
CPT/HCPCS: 36415; 80053; 82140; 85025; 85610; 85730; 87040; 96365; 96375; 99283; J1170; J2405